=== PATIENT | female | born 1960 | race African-American/Black ===

== ENCOUNTER 2019-01-12 05:22 | Emergency (ER) | payer OTHER ==
[~2019-01-12] VITALS: Ht 162.6 cm; Wt 82.0 kg
[~2019-01-12 05:22] MED LIST: METFORMIN
[2019-01-12 05:52] LABS: BASOPHILS % 0.7 % (0.0-2.0); EOSINOPHILS % 3.2 % (0.0-5.0); HEMATOCRIT. 33.6 % (36.0-48.0); HEMOGLOBIN. 11.1 g/dL (12.0-16.0); LYMPHOCYTES % 37.6 % (20.0-50.0); MEAN CORPUSCULAR HEMOGLOBIN 29.4 pg (28.0-32.0); MEAN CORPUSCULAR VOLUME 88.8 fL (81.0-99.0); MONOCYTES % 5.7 % (2.0-8.0); NEUTROPHILS % 52.8 % (40.0-76.0); PLATELET 354 x1000/uL (130-400); RED BLOOD CELL COUNT 3.79 mill/uL (4.2-5.4); RED CELL DISTRIBUTION WIDTH 13.5 % (11.6-14.6)
[2019-01-12 05:58] LABS: CHLORIDE 105 mEq/L (98-107)
[2019-01-12 06:00] LABS: INR 1.9; PROTHROMBIN TIME 18.7 sec (9.1-11.1)
[2019-01-12 06:02] LABS: ETHANOL BLOOD < 10 mg/dL
[2019-01-12 06:04] LABS: LDL CHOLESTEROL 54 mg/dL (5-100)
[2019-01-12 07:44] LABS: CLARITY URINE CLEAR (CLEAR); COLOR URINE YELLOW (YELLOW); KETONES URINE NEGATIVE (NEGATIVE); LEUKOCYTE ESTERASE URINE NEGATIVE (NEGATIVE); NITRITE URINE NEGATIVE (NEGATIVE); OCCULT BLOOD URINE NEGATIVE (NEGATIVE); PROTEIN URINE NEGATIVE (NEGATIVE); SPECIFIC GRAVITY URINE 1.018 (1.005-1.030); UROBILINOGEN URINE 0.2 E.U./dL (0.2-1.0)
[2019-01-12 08:16] LABS: *BARBITURATES SCREEN URINE NEGATIVE (NEGATIVE); *BENZODIAZEPINES SCREEN URINE NEGATIVE (NEGATIVE); *COCAINE SCREEN URINE NEGATIVE (NEGATIVE)
[2019-01-12 08:17] LABS: *AMPHETAMINES SCREEN URINE NEGATIVE (NEGATIVE); CANNABINOID URINE SCREEN NEGATIVE (NEGATIVE); METHADONE URINE SCREEN NEGATIVE (NEGATIVE); OPIATES URINE SCREEN NEGATIVE (NEGATIVE); PHENCYCLIDINE URINE SCREEN NEGATIVE (NEGATIVE)
[2019-01-12 11:22] VITALS: BP 124/68
== END 2019-01-12 11:49 | disposition short-term general hospital (02) ==
LOC: ER 05:22 → CANBEDREQ 15:30
DX: I63.9 Cerebral infarction, unspecified (principal); E11.9 Type 2 diabetes mellitus without complications; I69.351 Hemiplegia and hemiparesis following cerebral infarction affecting right dominant side; I69.328 Other speech and language deficits following cerebral infarction
CPT/HCPCS: 36415; 70450; 70496; 70498; 71045; 80053; 80305; 80320; 81003; 82962; 83721; 84484; 85025; 85610; 93005; 99291; Z7610; G0480